=== PATIENT | female | born 1965 | race Caucasian/White ===

== ENCOUNTER 2018-04-13 16:43 | Emergency (ER) | payer MEDICARE, MEDICAID ==
[~2018-04-13] VITALS: Ht 162.6 cm; Wt 69.1 kg
[~2018-04-13 16:43] MED LIST: GLIM1TAB46 PO; LANTUS SQ; LISI-230 PO; METF1000 PO; ZOC40T PO
[2018-04-13 16:51] VITALS: BP 129/79
[2018-04-13] MEDS ORDERED: CEPH-571 PO (17:04)
== END 2018-04-13 17:14 | disposition home or self-care (01) ==
LOC: ER 16:43
DX: L03.032 Cellulitis of left toe (principal); E78.00 Pure hypercholesterolemia, unspecified; I10 Essential (primary) hypertension; E11.9 Type 2 diabetes mellitus without complications; G89.29 Other chronic pain; Z79.4 Long term (current) use of insulin; Z79.899 Other long term (current) drug therapy
CPT/HCPCS: 99283

== ENCOUNTER 2018-05-21 06:15 | Emergency (ER) | payer MEDICARE, MEDICAID ==
[~2018-05-21] VITALS: Ht 165.1 cm; Wt 64.5 kg
[~2018-05-21 06:15] MED LIST changes: +CEPH-571 PO
[2018-05-21] MEDS ORDERED: ketorolac tromethamine 15mg/ml inj. IM ONE (06:45)
[2018-05-21 06:57] VITALS: BP 147/84
[2018-05-21] MEDS ORDERED: CYCL-1 PO (07:04)
== END 2018-05-21 07:03 | disposition home or self-care (01) ==
LOC: ER 06:16
DX: M43.6 Torticollis (principal); E78.00 Pure hypercholesterolemia, unspecified; I10 Essential (primary) hypertension; E11.9 Type 2 diabetes mellitus without complications; G89.29 Other chronic pain; F17.200 Nicotine dependence, unspecified, uncomplicated; Z79.4 Long term (current) use of insulin; Z79.899 Other long term (current) drug therapy
CPT/HCPCS: 96372; 99283; J1885

== ENCOUNTER 2018-08-02 09:33 | Emergency (ER) | payer MEDICARE, MEDICAID ==
[~2018-08-02] VITALS: Ht 162.6 cm; Wt 68.2 kg
[~2018-08-02 09:33] MED LIST changes: +CYCL-1 PO
[2018-08-02 10:13] VITALS: BP 131/81
[2018-08-02] MEDS ORDERED: ketorolac trometh. 30mg/ml inj. IM ONE (11:15)
[2018-08-02] MEDS ORDERED: HYDR-3965 PO (11:20)
== END 2018-08-02 11:47 | disposition home or self-care (01) ==
LOC: ER 09:34
DX: R07.89 Other chest pain (principal); F17.200 Nicotine dependence, unspecified, uncomplicated; E78.00 Pure hypercholesterolemia, unspecified; I10 Essential (primary) hypertension; E11.9 Type 2 diabetes mellitus without complications; G89.29 Other chronic pain; Z79.899 Other long term (current) drug therapy; Z79.4 Long term (current) use of insulin; W11.XXXA Fall on and from ladder, initial encounter; Y93.89 Activity, other specified; Y92.89 Other specified places as the place of occurrence of the external cause; Y99.9 Unspecified external cause status
CPT/HCPCS: 71046; 96372; 99284; J1885

== ENCOUNTER 2019-06-07 15:41 | Emergency (ER) | payer MEDICARE, MEDICAID ==
[~2019-06-07] VITALS: Ht 162.6 cm; Wt 67.9 kg
[~2019-06-07 15:41] MED LIST changes: +GLIM1TAB3 PO; -GLIM1TAB46 PO
[2019-06-07 15:46] VITALS: BP 116/67
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
[2019-06-07] MEDS ORDERED: HYDR-4353 PO (16:41)
[2019-06-07] MEDS ORDERED: HYDROcodone/acetaminophen 10/325mg tab PO ONE (16:55)
== END 2019-06-07 17:07 | disposition home or self-care (01) ==
LOC: ER 15:42
DX: R07.81 Pleurodynia (principal); M25.551 Pain in right hip; E78.00 Pure hypercholesterolemia, unspecified; I10 Essential (primary) hypertension; E11.9 Type 2 diabetes mellitus without complications; G89.29 Other chronic pain; F41.9 Anxiety disorder, unspecified; F32.9 Major depressive disorder, single episode, unspecified; F17.200 Nicotine dependence, unspecified, uncomplicated; Z79.4 Long term (current) use of insulin; Z79.84 Long term (current) use of oral hypoglycemic drugs; Z79.899 Other long term (current) drug therapy; Y04.8XXA Assault by other bodily force, initial encounter; Y93.89 Activity, other specified; Y92.89 Other specified places as the place of occurrence of the external cause; Y99.8 Other external cause status
CPT/HCPCS: 71100; 73502; 99283

== ENCOUNTER → 2020-01-17 | Emergency (ER) | payer MEDICARE, MEDICAID ==
[~2020-01-17] VITALS: Ht 165.1 cm; Wt 72.7 kg
[~2020-01-17] MED LIST changes: +AMA1T PO; -GLIM1TAB3 PO; +HYDR-3965 PO; +ketorolac trometh inj. 60 MG/2 ML VIAL IM ONE; +ondansetron 4mg rapidly disintigrating tab PO ONE
[2020-01-17 07:52] VITALS: BP 153/93
[2020-01-17 08:39] LABS: CLARITY,URINE SLIGHTLY CLOUDY (Clear); COLOR,URINE YELLOW (Yellow); GLUCOSE, URINE >=1000 mg/dl (Neg); KETONES,URINE NEGATIVE (Neg); LEUKOCYTE ESTERASE ,URINE NEGATIVE (Neg); NITRITES, URINE NEGATIVE (Neg); OCCULT BLOOD,URINE NEGATIVE (Neg); PROTEIN,URINE NEGATIVE (Neg); UROBILINOGEN,URINE 0.2 E.U/dL (0.2-1.0)
[2020-01-17 08:40] LABS: UA COLLECTION TYPE CLN CATCH MIDSTREAM
[2020-01-17 08:41] LABS: ALANINE AMINOTRANSFERASE 22 U/L (12-78); ALBUMIN 3.8 G/DL (3.4-5.0); ALKALINE PHOSPHATASE 123 IU/L (46-116); ANION GAP 3 (8-16); ASPARTATE AMINO TRANSFERASE 7 U/L (10-37); BILIRUBIN,TOTAL 0.3 MG/DL (0.1-1.0); BLOOD UREA NITROGEN 23 MG/DL (7-18); BUN/CREATININE RATIO 26.1 (6.6-38.0); CALCIUM 9.6 MG/DL (8.5-10.1); CHLORIDE 99 MMOL/L (99-107); CREATININE 0.88 MG/DL (0.40-0.90); GLUCOSE 310 MG/DL (70-104); POTASSIUM 4.3 MMOL/L (3.5-5.1); SODIUM 133 MMOL/L (135-145); TOTAL CARBON DIOXIDE 31.1 MMOL/L (24-32); TOTAL PROTEIN 7.8 G/DL (6.4-8.2); eGFR 67 ML/MIN
[2020-01-17 08:42] LABS: BASOPHILS # (AUTO) 0.1 X10'3 (0-0.2); BASOPHILS % (AUTO) 0.7 % (0-1); EOSINOPHILS # (AUTO) 0.3 X10'3 (0-0.9); EOSINOPHILS % (AUTO) 3.2 % (0-6); HEMATOCRIT 44.3 % (35.0-45.0); LYMPHOCYTES # (AUTO) 2.8 X10'3 (1.1-4.8); LYMPHOCYTES % (AUTO) 31.6 % (21-51); MEAN CORPUSCULAR HEMOGLOBIN 31.8 PG (27.0-31.0); MEAN CORPUSCULAR HGB CONC 33.9 g/dL (33.0-36.5); MEAN CORPUSCULAR VOLUME 93.7 FL (78-98); MEAN PLATELET VOLUME 7.1 FL (7.4-10.4); MONOCYTES # (AUTO) 0.6 X10'3 (0-0.9); MONOCYTES % (AUTO) 6.5 % (2-12); NEUTROPHILS # (AUTO) 5.2 X10'3 (1.8-7.7); PLATELET COUNT 401 X10'3 (140-440); RED BLOOD COUNT 4.73 X10'6 (4.20-5.60); RED CELL DISTRIBUTION WIDTH 13.1 % (11.5-14.5); WHITE BLOOD COUNT 8.9 X10'3 (4.5-11.0)
[2020-01-17 08:43] LABS: AMYLASE 75 U/L (25-115); LIPASE 1655 U/L (73-393)
[2020-01-17 08:43] LABS: RBC,URINE NONE SEEN /HPF (0-2); WBC,URINE 0-4 /HPF (0-4)
[2020-01-17 08:44] LABS: BACTERIA,URINE FEW /HPF (Neg); MUCUS STRANDS NONE SEEN /LPF (Neg); RENAL CELLS, URINE FEW /HPF; SQUAMOUS EPITHELIAL CELL,UR MODERATE /LPF (FEW)
== END | disposition home or self-care (01) ==
LOC: ER 07:51
DX: K85.90 Acute pancreatitis without necrosis or infection, unspecified (principal); E78.00 Pure hypercholesterolemia, unspecified; I10 Essential (primary) hypertension; E11.9 Type 2 diabetes mellitus without complications; G89.29 Other chronic pain; F41.0 Panic disorder [episodic paroxysmal anxiety]; F32.9 Major depressive disorder, single episode, unspecified; Z79.2 Long term (current) use of antibiotics; Z79.4 Long term (current) use of insulin; Z79.899 Other long term (current) drug therapy
CPT/HCPCS: 36415; 76700; 80053; 81001; 82150; 83690; 85025; 96372; 99284; J1885

== ENCOUNTER 2021-12-16 05:54 | Emergency (ER) | payer MEDICARE, MEDICAID ==
[~2021-12-16] VITALS: Ht 160 cm; Wt 72.7 kg
[~2021-12-16 05:54] MED LIST changes: -HYDR-3965 PO; -ketorolac trometh inj. 60 MG/2 ML VIAL IM ONE; -ondansetron 4mg rapidly disintigrating tab PO ONE
[2021-12-16 06:01] VITALS: BP 122/86
[2021-12-16] MEDS ORDERED: acetaminophen 325mg tablet PO ONE (06:40)
[2021-12-16] MEDS ORDERED: ketorolac trometh inj. 60 MG/2 ML VIAL IM ONE (06:40)
== END 2021-12-16 07:29 | disposition home or self-care (01) ==
LOC: ER 05:55
DX: G56.02 Carpal tunnel syndrome, left upper limb (principal); E78.00 Pure hypercholesterolemia, unspecified; I10 Essential (primary) hypertension; E11.9 Type 2 diabetes mellitus without complications; G89.29 Other chronic pain; Z79.4 Long term (current) use of insulin; Z79.899 Other long term (current) drug therapy
CPT/HCPCS: 96372; 99283; J1885

== ENCOUNTER 2022-02-16 07:55 | Day surgery (SDC) | payer MEDICARE, MEDICAID ==
[2022-02-09 11:42] LABS: BASOPHILS # (AUTO) 0.1 X10'3 (0-0.2); BASOPHILS % (AUTO) 0.9 % (0-1); EOSINOPHILS # (AUTO) 0.2 X10'3 (0-0.9); EOSINOPHILS % (AUTO) 2.2 % (0-6); LYMPHOCYTES # (AUTO) 2.6 X10'3 (1.1-4.8); MEAN CORPUSCULAR HEMOGLOBIN 31.3 PG (27.0-31.0); MEAN CORPUSCULAR HGB CONC 34.4 g/dL (33.0-36.5); MEAN PLATELET VOLUME 7.3 FL (7.4-10.4); MONOCYTES # (AUTO) 0.5 X10'3 (0-0.9); MONOCYTES % (AUTO) 7.1 % (2-12); NEUTROPHILS # (AUTO) 3.6 X10'3 (1.8-7.7); NEUTROPHILS % (AUTO) 51.8 % (42-75); PRE OP HEMOGLOBIN 14.5 g/dL (12.0-16.0); PRE OP PLATELET COUNT 301 X10'3 (140-440); RED BLOOD COUNT 4.62 X10'6 (4.20-5.60); RED CELL DISTRIBUTION WIDTH 13.2 % (11.5-14.5)
[2022-02-09 12:02] LABS: ALBUMIN 3.7 G/DL (3.4-5.0); ALKALINE PHOSPHATASE 111 IU/L (46-116); BLOOD UREA NITROGEN 18 MG/DL (7-18); BUN/CREATININE RATIO 24.3 (6.6-38.0); CALCIUM 9.2 MG/DL (8.5-10.1); CHLORIDE 97 MMOL/L (99-107); CREATININE 0.74 MG/DL (0.40-0.90); PRE OP ALT 32 U/L (30-65); PRE OP ANION GAP 7 (8-16); PRE OP AST 12 U/L (10-37); PRE OP BILIRUB, TOTAL 0.4 MG/DL (0.0-1.0); PRE OP POTASSIUM 4.4 MMOL/L (3.4-5.1); PRE OP SODIUM 131 MMOL/L (135-145); TOTAL CARBON DIOXIDE 26.8 MMOL/L (24-32); TOTAL PROTEIN 7.4 G/DL (6.4-8.2); eGFR 81 ML/MIN
[2022-02-09 12:55] LABS: PRE OP GLUCOSE 376 MG/DL (70-104)
[2022-02-16] VITALS (7 sets, daily range): BP systolic 112–140; BP diastolic 68–91
[~2022-02-16] VITALS: Ht 165.1 cm; Wt 65.5 kg
[~2022-02-16 07:55] MED LIST changes: +ACET-890 PO; +ALBU18HF2 INH; -AMA1T PO; +ASCO-134 PO; +ATOR-2 PO; +BUPIVAcaine/PF 7.5mg/ml (0.75%) 10ml vial ONE; -CEPH-571 PO; +CHOL500026 PO; -CYCL-1 PO; +IBUP-1984 PO; +INSU100I8 SQ; +LIDOcaine 0.5% (5mg/ml) 50ml vial ONE; +MILK175C5 PO; +PSEU120T55 PO; +SERT-434 PO; -ZOC40T PO; +albuterol 2.5 MG/3 ML nebule NEB ONE; +famotidine 20mg tablet PO ONE; +ringers solution, lacted 1,000 ML IV SCH
[2022-02-16] MEDS ORDERED: ondansetron/PF 4mg/2ml inj IV PRN (08:25)
[2022-02-16] MEDS ORDERED: ringers solution, lacted 1,000 ML IV SCH (08:25)
[2022-02-16] MEDS ORDERED: labetalol 20mg/4ml (5mg/ml) syringe IV PRN (08:25)
[2022-02-16] MEDS ORDERED: morphine 2 MG/ML inj. syringe IV PRN (08:25)
[2022-02-16] MEDS ORDERED: morphine 4 MG/ML inj SYRINge IV PRN (08:25)
[2022-02-16] MEDS ORDERED: hydrALAZINE 20mg/ml inj. IV PRN (08:25)
[2022-02-16] MEDS ORDERED: fentaNYL/PF 50MCG/1 ML 2ML syringe IV PRN ×2 (08:25)
[2022-02-16] MEDS ORDERED: fentaNYL/PF 50MCG/1 ML 2ML syringe ONE (09:28)
[2022-02-16] MEDS ORDERED: MIDAZolam 1 MG/ML 5ML VIAL ONE (09:28)
--- NOTE | 2022-02-16 10:00 | NUR ---
Received from OR via [facility], accompanied by Anesthesiologist DR. GOLDEN and report given by Anesthesiolgist. LEFT WRIST DRESSING CDI, JOHNSON, CSM INTACT, TINGLING, DENIES PAIN. R.FA 20G PIV WITH LR AT 100ML/HR. VSS. DENIES NAUSEA, JUST FEEL SLEEPY. EDUCATION PROVIDED.
--- NOTE | 2022-02-16 10:47 | NUR ---
PATIENT GIVEN INSTRUCTIONS FOR DISCHARGE AND ANSWERED ALL QUESTIONS. RFA PIV REMOVED, VSS. DRESSING TO LEFT WRIST CDI. DENIES PAIN. DISCHARGED TO SISTER, SHAHAB, INSTRUCTIONS REVIEWED WITH HER WELL. PATIENT DISCHARGED WITH ALL BELONGINGS.
== END 2022-02-16 10:47 | disposition home or self-care (01) ==
LOC: PAS 07:55
PROVIDERS: ATTEND Orthopaedic Surgery Hand Surgery
DX: G56.02 Carpal tunnel syndrome, left upper limb (principal); E11.9 Type 2 diabetes mellitus without complications; I10 Essential (primary) hypertension; F41.9 Anxiety disorder, unspecified; F32.A Depression, unspecified; M19.90 Unspecified osteoarthritis, unspecified site; F17.210 Nicotine dependence, cigarettes, uncomplicated; Z20.822 Contact with and (suspected) exposure to COVID-19; Z79.899 Other long term (current) drug therapy; Z79.4 Long term (current) use of insulin; Z98.51 Tubal ligation status; Z72.89 Other problems related to lifestyle
CPT/HCPCS: 29848; 36415; 80053; 82948; 85025; 93005; J0690; J2250; J3010; J3490; J7030; J7060; J7120; U0003; U0005; Z7506; Z7512; A4215; A6449; A7000

== ENCOUNTER 2022-08-03 07:35 | Day surgery (SDC) | payer MEDICARE, MEDICAID ==
[2022-07-27 16:12] LABS: BASOPHILS % (AUTO) 0.6 % (0-1); EOSINOPHILS # (AUTO) 0.1 X10'3 (0-0.9); EOSINOPHILS % (AUTO) 2.4 % (0-6); LYMPHOCYTES # (AUTO) 2.9 X10'3 (1.1-4.8); LYMPHOCYTES % (AUTO) 48.8 % (21-51); MEAN CORPUSCULAR HEMOGLOBIN 31.7 PG (27.0-31.0); MEAN CORPUSCULAR HGB CONC 34.5 g/dL (33.0-36.5); MEAN CORPUSCULAR VOLUME 91.8 FL (78-98); MEAN PLATELET VOLUME 6.9 FL (7.4-10.4); MONOCYTES # (AUTO) 0.4 X10'3 (0-0.9); MONOCYTES % (AUTO) 6.7 % (2-12); NEUTROPHILS # (AUTO) 2.4 X10'3 (1.8-7.7); NEUTROPHILS % (AUTO) 41.5 % (42-75); PRE OP HEMATOCRIT 40.2 % (35.0-45.0); PRE OP HEMOGLOBIN 13.9 g/dL (12.0-16.0); PRE OP PLATELET COUNT 284 X10'3 (140-440); RED BLOOD COUNT 4.38 X10'6 (4.20-5.60); RED CELL DISTRIBUTION WIDTH 12.6 % (11.5-14.5)
[2022-07-27 16:22] LABS: ALBUMIN 3.6 G/DL (3.4-5.0); ALBUMIN/GLOBULIN RATIO 1.1 (1.1-1.5); ALKALINE PHOSPHATASE 95 IU/L (46-116); BLOOD UREA NITROGEN 15 MG/DL (7-18); BUN/CREATININE RATIO 19.7 (6.6-38.0); CALCIUM 9.1 MG/DL (8.5-10.1); CHLORIDE 102 MMOL/L (99-107); CREATININE 0.76 MG/DL (0.40-0.90); PRE OP ALT 25 U/L (30-65); PRE OP ANION GAP 7 (8-16); PRE OP AST 12 U/L (10-37); PRE OP BILIRUB, TOTAL 0.2 MG/DL (0.0-1.0); PRE OP POTASSIUM 4.1 MMOL/L (3.4-5.1); PRE OP SODIUM 138 MMOL/L (135-145); TOTAL CARBON DIOXIDE 29.4 MMOL/L (24-32); TOTAL PROTEIN 6.8 G/DL (6.4-8.2); eGFR 79 ML/MIN
[2022-07-27 16:24] LABS: PRE OP GLUCOSE 294 MG/DL (70-104)
[~2022-08-03] VITALS: Ht 162.6 cm; Wt 65.8 kg
[2022-08-03] VITALS (7 sets, daily range): BP systolic 102–134; BP diastolic 69–82
[~2022-08-03 07:35] MED LIST changes: -ASCO-134 PO; +BUPIVAcaine/PF 2.5mg/ml (0.25%) 10ml vial ONE; -BUPIVAcaine/PF 7.5mg/ml (0.75%) 10ml vial ONE; -METF1000 PO; -PSEU120T55 PO; -albuterol 2.5 MG/3 ML nebule NEB ONE; +albuterol 2.5 MG/3 ML nebule NEB PRN; +ceFAZolin inj. 2,000 MG in dextrose 5%-water 100 ML IV ONE
[2022-08-03] MEDS ORDERED: meperidine/PF 25mg/ml syringe IV PRN ×3 (08:40)
[2022-08-03] MEDS ORDERED: morphine 4 MG/ML inj SYRINge IV PRN (08:40)
[2022-08-03] MEDS ORDERED: ondansetron/PF 4mg/2ml inj IV PRN (08:40)
[2022-08-03] MEDS ORDERED: ringers solution, lacted 1,000 ML IV SCH (08:40)
[2022-08-03] MEDS ORDERED: morphine 2 MG/ML inj. syringe IV PRN (08:40)
[2022-08-03] MEDS ORDERED: proCHLORperazine 10 MG/2 ml inj IV PRN (08:40)
[2022-08-03] MEDS ORDERED: midazolam 1 mg/ML 2ml injection ONE (08:58)
[2022-08-03] MEDS ORDERED: fentaNYL/PF 50MCG/1 ML 2ML syringe ONE (08:58)
--- NOTE | 2022-08-03 09:19 | NUR ---
Received from OR via , accompanied by Anesthesiologist DO and OR NURSE report given by Anesthesiolgist. PT IS DROWSY YET ABLE TO FOLLOW VERBAL COMMANDS. RT WRIST BANDAGE, CDI. VSS. PT ZANE ANY PAIN OR DISCOMFORT. Addendum: 08/03/22 at 0955 by Nedra Sims RN Amended: Links added.
== END 2022-08-03 10:29 | disposition home or self-care (01) ==
LOC: PAS 07:35
PROVIDERS: ATTEND Orthopaedic Surgery Hand Surgery
DX: G56.02 Carpal tunnel syndrome, left upper limb (principal); F41.8 Other specified anxiety disorders; M19.90 Unspecified osteoarthritis, unspecified site; I10 Essential (primary) hypertension; F17.210 Nicotine dependence, cigarettes, uncomplicated; Z79.899 Other long term (current) drug therapy; Z98.51 Tubal ligation status; Z98.890 Other specified postprocedural states; Z72.89 Other problems related to lifestyle
CPT/HCPCS: 36415; 64721; 80053; 82948; 85025; J0690; J2250; J3010; J3490; J7030; J7060; J7120; Z7506; Z7512; A4215

== ENCOUNTER 2024-01-21 18:23 | Emergency (ER) | payer MEDICARE, MEDICAID ==
[~2024-01-21] VITALS: Ht 160 cm; Wt 70.5 kg
[~2024-01-21 18:23] MED LIST changes: -BUPIVAcaine/PF 2.5mg/ml (0.25%) 10ml vial ONE; -LIDOcaine 0.5% (5mg/ml) 50ml vial ONE; -albuterol 2.5 MG/3 ML nebule NEB PRN; -ceFAZolin inj. 2,000 MG in dextrose 5%-water 100 ML IV ONE; -famotidine 20mg tablet PO ONE; -ringers solution, lacted 1,000 ML IV SCH
[2024-01-21 18:29] VITALS: BP 170/96; PULSE 94; RESP 18; TEMP 97.9; O2SAT 98
[2024-01-21 18:58] LABS: ALBUMIN 3.5 G/DL (3.4-5.0); ANION GAP 11 (8-16); BLOOD UREA NITROGEN 10 MG/DL (7-18); BUN/CREATININE RATIO 16.4 (10.0-20.0); CALCIUM 8.8 MG/DL (8.5-10.1); CHLORIDE 104 MMOL/L (99-107); CREATININE 0.61 MG/DL (0.40-0.90); GLUCOSE 133 MG/DL (70-104); LIPASE 22 U/L (16-77); POTASSIUM 3.3 MMOL/L (3.5-5.1); SODIUM 142 MMOL/L (135-145); TOTAL CARBON DIOXIDE 27.3 MMOL/L (24-32); eCRCL 84 ML/MIN; eGFR > 90 ML/MIN
[2024-01-21 18:59] LABS: HEMOGLOBIN 13.2 g/dl (12.0-16.0)
[2024-01-21 19:01] LABS: BASOPHILS % (AUTO) 0.4 % (0-1); EOSINOPHILS # (AUTO) 0.1 X10'3 (0-0.9); EOSINOPHILS % (AUTO) 0.6 % (0-6); HEMATOCRIT 39.1 % (35.0-45.0); LYMPHOCYTES # (AUTO) 2.2 X10'3 (1.1-4.8); LYMPHOCYTES % (AUTO) 27.9 % (21-51); MEAN CORPUSCULAR HEMOGLOBIN 31.8 PG (27.0-31.0); MEAN CORPUSCULAR HGB CONC 33.6 g/dL (33.0-36.5); MEAN CORPUSCULAR VOLUME 94.5 FL (78-98); MEAN PLATELET VOLUME 6.9 FL (7.4-10.4); MONOCYTES # (AUTO) 0.5 X10'3 (0-0.9); MONOCYTES % (AUTO) 6.7 % (2-12); NEUTROPHILS # (AUTO) 5.2 X10'3 (1.8-7.7); NEUTROPHILS % (AUTO) 64.4 % (42-75); PLATELET COUNT 251 X10'3 (140-440); RED BLOOD COUNT 4.14 X10'6 (4.20-5.60); RED CELL DISTRIBUTION WIDTH 12.6 % (11.5-14.5)
[2024-01-21 20:04] LABS: BILIRUBIN,URINE NEGATIVE (Neg); CLARITY,URINE CLEAR (Clear); COLOR,URINE STRAW (Yellow); GLUCOSE, URINE NEGATIVE (Neg); KETONES,URINE NEGATIVE (Neg); LEUKOCYTE ESTERASE ,URINE TRACE (Neg); OCCULT BLOOD,URINE TRACE-INTACT (Neg); PROTEIN,URINE NEGATIVE (Neg); UROBILINOGEN,URINE 0.2 E.U/dL (0.2-1.0)
[2024-01-21 20:05] LABS: NITRITES, URINE NEGATIVE (Neg); UA COLLECTION TYPE CLN CATCH MIDSTREAM
[2024-01-21 20:15] LABS: BACTERIA,URINE 4+ /HPF (Neg); MUCUS STRANDS NONE SEEN /LPF (Neg); RBC,URINE 0-2 /HPF (0-2); SQUAMOUS EPITHELIAL CELL,UR FEW /LPF (FEW); TRANSITIONAL EPI CELLS,URINE MODERATE /HPF; WBC,URINE 0-4 /HPF (0-4)
[2024-01-21] MEDS ORDERED: CEPH250T PO (20:55)
== END 2024-01-21 21:07 | disposition home or self-care (01) ==
LOC: ER 18:24
DX: E11.65 Type 2 diabetes mellitus with hyperglycemia (principal); N39.0 Urinary tract infection, site not specified; I10 Essential (primary) hypertension; E78.00 Pure hypercholesterolemia, unspecified; G89.29 Other chronic pain; M54.9 Dorsalgia, unspecified; F41.9 Anxiety disorder, unspecified; F32.9 Major depressive disorder, single episode, unspecified; F41.0 Panic disorder [episodic paroxysmal anxiety]
CPT/HCPCS: 36415; 71045; 80048; 81001; 82948; 83690; 85025; 87077; 87088; 87186; 99284

== ENCOUNTER 2024-03-28 10:44 | Emergency (ER) | payer MEDICARE, MEDICAID ==
[~2024-03-28] VITALS: Ht 162.6 cm; Wt 66.8 kg
[2024-03-28 11:02] LABS: BILIRUBIN,URINE NEGATIVE (Neg); CLARITY,URINE CLEAR (Clear); COLOR,URINE STRAW (Yellow); GLUCOSE, URINE NEGATIVE (Neg); KETONES,URINE NEGATIVE (Neg); LEUKOCYTE ESTERASE ,URINE NEGATIVE (Neg); NITRITES, URINE NEGATIVE (Neg); OCCULT BLOOD,URINE NEGATIVE (Neg); PH,URINE 6.5 (4.8-8.0); PROTEIN,URINE NEGATIVE (Neg); UROBILINOGEN,URINE 0.2 E.U/dL (0.2-1.0)
[2024-03-28 11:05] LABS: URINE HCG NEGATIVE (NEG)
[2024-03-28 11:06] LABS: UA COLLECTION TYPE CLN CATCH MIDSTREAM
[2024-03-28 11:09] LABS: BASOPHILS # (AUTO) 0.1 X10'3 (0-0.2); BASOPHILS % (AUTO) 0.8 % (0-1); EOSINOPHILS # (AUTO) 0.8 X10'3 (0-0.9); EOSINOPHILS % (AUTO) 10.2 % (0-6); HEMATOCRIT 41.8 % (35.0-45.0); HEMOGLOBIN 13.9 g/dl (12.0-16.0); LYMPHOCYTES # (AUTO) 3.6 X10'3 (1.1-4.8); LYMPHOCYTES % (AUTO) 46.2 % (21-51); MEAN CORPUSCULAR HEMOGLOBIN 31.4 PG (27.0-31.0); MEAN CORPUSCULAR HGB CONC 33.3 g/dL (33.0-36.5); MEAN CORPUSCULAR VOLUME 94.3 FL (78-98); MEAN PLATELET VOLUME 6.8 FL (7.4-10.4); MONOCYTES # (AUTO) 0.5 X10'3 (0-0.9); MONOCYTES % (AUTO) 6.8 % (2-12); NEUTROPHILS # (AUTO) 2.8 X10'3 (1.8-7.7); PLATELET COUNT 280 X10'3 (140-440); RED BLOOD COUNT 4.43 X10'6 (4.20-5.60); RED CELL DISTRIBUTION WIDTH 12.8 % (11.5-14.5); WHITE BLOOD COUNT 7.7 X10'3 (4.5-11.0)
[2024-03-28 11:31] LABS: ALANINE AMINOTRANSFERASE 36 U/L (12-78); ALBUMIN 3.6 G/DL (3.4-5.0); ALKALINE PHOSPHATASE 69 IU/L (46-116); ANION GAP 8 (8-16); ASPARTATE AMINO TRANSFERASE 16 U/L (10-37); BILIRUBIN,TOTAL 0.2 MG/DL (0.1-1.0); BLOOD UREA NITROGEN 12 MG/DL (7-18); BUN/CREATININE RATIO 18.8 (10.0-20.0); CHLORIDE 103 MMOL/L (99-107); CREATININE 0.64 MG/DL (0.40-0.90); GLUCOSE 75 MG/DL (70-104); LIPASE 32 U/L (16-77); POTASSIUM 4.1 MMOL/L (3.5-5.1); SODIUM 139 MMOL/L (135-145); TOTAL CARBON DIOXIDE 27.8 MMOL/L (24-32); TOTAL PROTEIN 7.2 G/DL (6.4-8.2); eCRCL 84 ML/MIN; eGFR > 90 ML/MIN
[2024-03-28 11:34] VITALS: BP 142/73; PULSE 90; RESP 16; TEMP 98.1; O2SAT 95
== END 2024-03-28 11:59 | disposition home or self-care (01) ==
LOC: ER 10:44
DX: E11.649 Type 2 diabetes mellitus with hypoglycemia without coma (principal); E78.00 Pure hypercholesterolemia, unspecified; I10 Essential (primary) hypertension; G89.29 Other chronic pain; M54.9 Dorsalgia, unspecified; F41.9 Anxiety disorder, unspecified; F32.A Depression, unspecified; F41.0 Panic disorder [episodic paroxysmal anxiety]; Z79.899 Other long term (current) drug therapy; Z79.4 Long term (current) use of insulin
CPT/HCPCS: 36415; 80053; 81003; 81025; 82948; 83690; 85025; 99283

== ENCOUNTER 2024-06-04 03:14 | Emergency (ER) | payer MEDICARE, MEDICAID | END 2024-06-04 04:00 | disposition left against medical advice (07) | LOC: ER 03:14 | DX: Z53.21 Procedure and treatment not carried out due to patient leaving prior to being seen by health care provider (principal) ==

== ENCOUNTER 2024-06-20 14:51 | Emergency (ER) | payer MEDICARE, MEDICAID ==
[~2024-06-20] VITALS: Ht 162.6 cm; Wt 66.8 kg
[2024-06-20 15:27] LABS: BILIRUBIN,URINE SMALL (Neg); CLARITY,URINE SLIGHTLY CLOUDY (Clear); COLOR,URINE YELLOW (Yellow); GLUCOSE, URINE NEGATIVE (Neg); KETONES,URINE TRACE mg/dl (Neg); LEUKOCYTE ESTERASE ,URINE NEGATIVE (Neg); NITRITES, URINE NEGATIVE (Neg); OCCULT BLOOD,URINE NEGATIVE (Neg); PROTEIN,URINE 100 mg/dl (Neg)
[2024-06-20 15:33] LABS: UA COLLECTION TYPE CLN CATCH MIDSTREAM
[2024-06-20 15:34] LABS: BACTERIA,URINE FEW /HPF (Neg); MUCUS STRANDS MANY /LPF (Neg); RBC,URINE NONE SEEN /HPF (0-2); SQUAMOUS EPITHELIAL CELL,UR MODERATE /LPF (FEW); WBC,URINE 0-4 /HPF (0-4)
[2024-06-20] MEDS: normal saline 1000ml 1,000 ML IV ONE (22:46)
[2024-06-20 22:54] LABS: BASOPHILS # (AUTO) 0.1 X10'3 (0-0.2); EOSINOPHILS # (AUTO) 0.6 X10'3 (0-0.9); EOSINOPHILS % (AUTO) 9.1 % (0-6); HEMATOCRIT 40.3 % (35.0-45.0); LYMPHOCYTES # (AUTO) 2.6 X10'3 (1.1-4.8); LYMPHOCYTES % (AUTO) 38.9 % (21-51); MEAN CORPUSCULAR HEMOGLOBIN 32.1 PG (27.0-31.0); MEAN CORPUSCULAR HGB CONC 34.6 g/dL (33.0-36.5); MEAN CORPUSCULAR VOLUME 92.8 FL (78-98); MEAN PLATELET VOLUME 6.8 FL (7.4-10.4); MONOCYTES # (AUTO) 0.6 X10'3 (0-0.9); MONOCYTES % (AUTO) 9.5 % (2-12); NEUTROPHILS # (AUTO) 2.8 X10'3 (1.8-7.7); NEUTROPHILS % (AUTO) 41.5 % (42-75); PLATELET COUNT 280 X10'3 (140-440); RED BLOOD COUNT 4.34 X10'6 (4.20-5.60); WHITE BLOOD COUNT 6.8 X10'3 (4.5-11.0)
[2024-06-20 23:05] LABS: ALANINE AMINOTRANSFERASE 38 U/L (12-78); ALBUMIN 3.6 G/DL (3.4-5.0); ALBUMIN/GLOBULIN RATIO 1.1 (1.1-1.5); ALKALINE PHOSPHATASE 82 IU/L (46-116); ANION GAP 8 (8-16); ASPARTATE AMINO TRANSFERASE 13 U/L (10-37); BILIRUBIN,TOTAL 0.4 MG/DL (0.1-1.0); BLOOD UREA NITROGEN 24 MG/DL (7-18); BUN/CREATININE RATIO 25.3 (10.0-20.0); CALCIUM 9.4 MG/DL (8.5-10.1); CHLORIDE 96 MMOL/L (99-107); CREATININE 0.95 MG/DL (0.40-0.90); GLUCOSE 244 MG/DL (70-104); POTASSIUM 4.7 MMOL/L (3.5-5.1); SODIUM 132 MMOL/L (135-145); TOTAL CARBON DIOXIDE 28.3 MMOL/L (24-32); eCRCL 56 ML/MIN; eGFR 60 ML/MIN
[2024-06-21 00:07] VITALS: BP 123/71; PULSE 74; RESP 14; TEMP 98.6; O2SAT 98
== END 2024-06-21 00:10 | disposition home or self-care (01) ==
LOC: ER 14:51
DX: B34.9 Viral infection, unspecified (principal); Z20.822 Contact with and (suspected) exposure to COVID-19; N39.0 Urinary tract infection, site not specified; Z11.52 Encounter for screening for COVID-19
CPT/HCPCS: 36415; 71045; 80053; 81001; 83605; 85025; 87040; 87811; 96360; 99284; J7030

== ENCOUNTER 2025-02-27 14:36 | Emergency (ER) | payer MEDICARE, MEDICAID ==
[~2025-02-27] VITALS: Ht 160 cm; Wt 68.0 kg
[2025-02-27 14:40] VITALS: BP 119/69; PULSE 91; TEMP 97.6; O2SAT 96
--- NOTE | 2025-02-27 15:27 | Physician Documentation ---
History of Present Illness ~ Chief Complaint: Arm Pain Stated Complaint: R ARM PAIN Time Seen by MD: 15:13 OK to notify your PCP?: Yes Primary Medical Doctor: marcela Source: patient Mode of Arrival: POV Exam Limitations: no limitations HPI 59-year-old female presents with right upper arm pain and neck pain and midthoracic pain after lifting a heavy box last night around 9:30 p.m.. She states that she has a prior neck injury and back injury with possible disc compression or bulging discs she does not remember the name of the condition and thinks she may have strained the muscles around her neck last night. She used to be seen by MOSHE Child for her neck problems and opted out of surgery. She has good range of motion in the right arm although it is painful to perform. She took Tylenol last night for the pain. Tetanus within 5 years: No Medication Reconciliation Allergies: Coded Allergies: No Known Allergies (Unverified , 02/27/25) Scheduled Atorvastatin Calcium (Atorvastatin Calcium), 1 TAB PO HS, (Reported) Cholecalciferol (Vitamin D3) (Dialyvite Vitamin D3 Max), 1 TAB PO Q7D, (Reported) Insulin Glargine,Hum.rec.anlog* (Lantus*), 50 UNITS SQ HS, (Reported) Insulin Lispro (Humalog), SQ ACHS, (Reported) Lisinopril/Hydrochlorothiazide 10-12.5 Mg* (Lisinopril-Hctz 10-12.5 Mg*), 10- 12.5 MG PO HS, (Reported) Milk Thistle Seed Extract (Milk Thistle), Unknown Dose PO BID, (Reported) Sertraline HCl (Sertraline HCl), 150 MG PO HS, (Reported) Scheduled PRN Acetaminophen (Tylenol), 500 MG PO Q4HPRN PRN for pain or fever, (Reported) Albuterol Sulfate (Ventolin Hfa), 2 PUFFS INH Q4HPRN PRN for SOB or wheezing, (Reported) Ibuprofen* (Motrin*), Unknown Dose PO Q6H PRN PRN for pain, (Reported) Past Medical History Past Medical History: High Cholesterol, Hypertension, Diabetes, Chronic Back Pain, Anxiety, Depression, Panic Disorder Past Surgical History: no surgical history Alcohol Use: None Drug Use: none Lives In: Home Occupation: employed Review of Systems All Other Systems at this time: Reviewed and Negative Physical Exam Vital Signs: RN Vital Signs have been reviewed: Yes, Temperature: 97.6, Source: Temporal, Heart Rate: 91, Respiratory Rate: 18, BP: 119/69, Pulse Oximetry: 96, Weight: 68.000 Oxygen Flow Rate: 0 Pulse Oximetry Reflects: adequate oxygenation Physical Exam General: Alert, no apparent distress. HEENT: PERRL, EOMI, no injection, moist mucous membranes. Neck: Full range of motion. Respiratory: Lungs clear, no respiratory distress. Chest: No accessory muscle use. Cardiovascular: Regular rate and rhythm, no murmurs. Gastrointestinal: Soft, nontender, nondistended. Bowels sounds present. Extremities: Normal range of motion, no deformity. Normal range of motion in right arm, good pulses and CSM. Back: Tenderness to palpation at T8, muscle spasms along cervical and thoracic spine. Neurologic: Oriented x4. Psychiatric: Normal mood and affect. Skin: Normal color, warm and dry. No edema, no ecchymosis. Progress Results/Orders Results/Orders Vital Signs 02/27/25 14:40 Temp 97.6 Pulse 91 Resp 18 B/P (MAP) 119/69 Pulse Ox 96 O2 Flow Rate 0 Medical Decision Making Findings Suellen is a 59-year-old female with right pain with point tenderness at the lateral aspect of right humerus after lifting a heavy box last night around 9:30 p.m. She has good range of motion in this extremity. She also reports at times having neck pain if she moves certain directions and the muscles along the cervical spine bilaterally are very tight but no tenderness along the vertebrae. She does have tenderness at T8 vertebrae with tenderness along the thoracic spine muscles as well. She has history of neck and back injury with limited information gathered about this. She denies any numbness or tingling in her extremities. She attempted to treat at home with Tylenol last night. We administered a Toradol injection while here in the department. Using shared decision-making with the patient she is comfortable with discharge with a prescription for Flexeril. We discussed the limitations of an x-ray of the humerus or shoulder but due to her good range motion it would likely not show any bone abnormalities. She opted not to do a shoulder or humerus x-ray. We discussed that if she continues having symptoms or symptoms get worse she return to be seen here or at her primary care provider. She should follow up with the primary care provider in the next 3 days. We discussed that she may need further imaging such as an MRI if her symptoms continue. She can continue to ice for the next 48 hours and then alternate ice and heat to the right arm. General Diff Dx:Considerations: Include: Contusion, Fracture, Hematoma, Neurovascular injury, Sprain Shoulder Diff Dx:Consideration: Include: AC separation Departure Disposition: 01 HOME / SELF CARE / HOMELESS Impression: Primary Impression: Muscle strain Condition: Stable Discharge Instructions: Muscle Strain, [id number] Additional Instructions: As discussed you likely have a muscle strain and your right bicep. If you continued eye pain or this gets worse please return back here or go to your primary care provider. Follow up with her primary care prior care provider in the next 3 days. You can use the Flexeril prescription to help with muscle spasms. You can continue ice for the next 48 hours and alternate ice and heat to the right arm as you have already been doing. You can use either Tylenol or ibuprofen/naproxen for pain relief as well. Do not drive on Flexeril until you know how your body reacts to it. Referrals: NO PRIMARY CARE PROVIDER (PCP) Prescriptions Cyclobenzaprine* (Cyclobenzaprine*) 10 Mg Tablet 1 TAB PO Q8H for muscle spasms for 10 Days, #30 TAB 0 Refills Prov: SHANTHI TIRADO 02/27/25 Education Educated: Patient Educated regarding: diagnosis, treatment, prognosis, need for follow up Additional Comment Medical Screen Exam This patient recieved a medical screening examination. After reviewing the individual's medical complaints with presenting symptoms and performing an appropriate physical examination, it was determined that no emergency medical condition is present. This individual is also not a women having contractions. Signature Scribe Signature: . Attestation: Scribed for Shanthi Tirado by Shanthi Bonilla NP . 02/27/25 15:30 SHANTHI TIRADO February 27, 2025 15:26
[2025-02-27] MEDS ORDERED: CYCL-1 PO (15:28)
[2025-02-27 15:54] VITALS: RESP 16
[2025-02-27] MEDS: ketorolac trometh 30MG/ML vial 30 MG/ML VIAL IM ONE (15:54)
== END 2025-02-27 15:55 | disposition home or self-care (01) ==
LOC: ER 14:37
DX: S46.911A Strain of unspecified muscle, fascia and tendon at shoulder and upper arm level, right arm, initial encounter (principal); E11.9 Type 2 diabetes mellitus without complications; E78.00 Pure hypercholesterolemia, unspecified; I10 Essential (primary) hypertension; F41.9 Anxiety disorder, unspecified; F32.A Depression, unspecified; X50.0XXA Overexertion from strenuous movement or load, initial encounter; Y93.89 Activity, other specified; Y92.89 Other specified places as the place of occurrence of the external cause; Y99.8 Other external cause status
CPT/HCPCS: 96372; 99283; J1885

== ENCOUNTER 2025-08-21 11:24 | Emergency (ER) | payer MEDICARE, MEDICAID ==
[~2025-08-21] VITALS: Ht 160 cm; Wt 69.7 kg
[~2025-08-21 11:24] MED LIST changes: +CYCL-1 PO
[2025-08-21 11:33] VITALS: TEMP 97.3
[2025-08-21 12:08] LABS: MEAN PLATELET VOLUME 6.8 FL (7.4-10.4); RED CELL DISTRIBUTION WIDTH 12.6 % (11.5-14.5)
[2025-08-21 12:10] LABS: LEUKOCYTE ESTERASE ,URINE NEGATIVE (Neg); NITRITES, URINE NEGATIVE (Neg); OCCULT BLOOD,URINE NEGATIVE (Neg)
[2025-08-21 12:11] LABS: UA COLLECTION TYPE CLN CATCH MIDSTREAM
--- NOTE | 2025-08-21 12:15 | Physician Documentation ---
History of Present Illness ~ Chief Complaint: Back Pain Stated Complaint: BACK PAIN Time Seen by MD: 11:47 OK to notify your PCP?: Yes Primary Medical Doctor: [facility] Source: patient Mode of Arrival: POV Exam Limitations: no limitations HPI 60-year-old female who is here for lower back pain. She states she has a history of kidney stones and urinary tract infections but has not having any pain with urination. She denies any precipitating event that could have caused her back pain. She has been going to the chiropractor but states that her pain did not start after going to the chiropractor. She was hoping that she can get a Toradol injection. She has been taking Tylenol, Motrin and Flexeril at home with minimal improvement. Pain is localized to her lower back no radiation into extremities. No clumsiness, or bowel or bladder incontinence, urinary retention. Medication Reconciliation Allergies: Coded Allergies: No Known Allergies (Unverified , 08/21/25) Scheduled Atorvastatin Calcium (Atorvastatin Calcium), 1 TAB PO HS, (Reported) Cholecalciferol (Vitamin D3) (Dialyvite Vitamin D3 Max), 1 TAB PO Q7D, (Reported) Cyclobenzaprine* (Cyclobenzaprine*), 1 TAB PO Q8H Insulin Glargine,Hum.rec.anlog* (Lantus*), 50 UNITS SQ HS, (Reported) Insulin Lispro (Humalog), SQ ACHS, (Reported) Lisinopril/Hydrochlorothiazide 10-12.5 Mg* (Lisinopril-Hctz 10-12.5 Mg*), 10- 12.5 MG PO HS, (Reported) Milk Thistle Seed Extract (Milk Thistle), Unknown Dose PO BID, (Reported) Sertraline HCl (Sertraline HCl), 150 MG PO HS, (Reported) Scheduled PRN Acetaminophen (Tylenol), 500 MG PO Q4HPRN PRN for pain or fever, (Reported) Albuterol Sulfate (Ventolin Hfa), 2 PUFFS INH Q4HPRN PRN for SOB or wheezing, (R eported) Ibuprofen* (Motrin*), Unknown Dose PO Q6H PRN PRN for pain, (Reported) Past Medical History Past Medical History: High Cholesterol, Hypertension, Diabetes, Chronic Back P ain, Anxiety, Depression, Panic Disorder Past Surgical History: no surgical history Alcohol Use: None Drug Use: none Lives In: Home Occupation: employed Review of Systems All Other Systems at this time: Reviewed and Negative Physical Exam Physical Exam Vital Signs: Temperature: 97.3, Source: Temporal, Heart Rate: 84, Respiratory Rate: 16, BP: 126/73, Pulse Oximetry: 96, Weight: 69.700 Oxygen Flow Rate: 0 Physical Exam General Appearance: Alert, WD/WN. NAD. HEENT: NCAT, PERRL, EOMI. Neck: Supple, trachea midline. Cardiovascular: RRR. No m/r/g. Lungs: CTAB. Breathing unlabored Spine: No tenderness over spinous processes of cervical through lumbar spine, t enderness over the lumbar paraspinal muscles mostly on the left side. Extremities: Normal inspection. No edema. Skin: Warm/dry, normal color Neurological: Alert and oriented x4, normal gait. Psychiatric: Affect congruent with mood. Progress Results/Orders Results/Orders Completed Orders - ARIAS PRESCOTT Ketorolac Trometh 15mg/Ml Vial (Toradol (08/21/25 12:10) Medications Received in ER Medications (Trade) Dose Ordered Sig/Sydni Route PRN Reason Start Time Stop Time Status Last Admin Dose Admin (Toradol injection) 30 mg ONCE ONCE IM 08/21/25 12:10 08/21/25 12:13 DC 08/21/25 12:27 30 MG Vital Signs 08/21/25 08/21/25 08/21/25 11:33 11:52 12:27 Temp 97.3 Pulse 84 Resp 16 16 16 B/P (MAP) 126/73 Pulse Ox 96 O2 Flow Rate 0 Laboratory Tests Test 08/21/25 09:50 08/21/25 11:57 Urine Specimen Description Cln catch midstream Urine Color Yellow Urine Clarity Clear Urine pH 6.0 Urine Specific [place] 1.025 Urine Protein Negative Urine Glucose (UA) Negative Urine Ketones Negative Urine Occult Blood Negative Urine Nitrite Negative Urine Bilirubin Negative Urine Urobilinogen 0.2 Urine Leukocyte Esterase Negative Urine Culture Indicated Not ind Volume Urine Centrifuged 10 ml Urine Comment White Blood Count 6.4 Red Blood Count 4.26 Hemoglobin 13.3 Hematocrit 38.8 Mean Corpuscular Volume 91.0 Mean Corpuscular Hemoglobin 31.3 H Mean Corpuscular Hemoglobin Concent 34.4 Red Cell Distribution Width 12.6 Platelet Count 259 Mean Platelet Volume 6.8 L Neutrophils (%) (Auto) 61.4 Lymphocytes (%) (Auto) 29.1 Monocytes (%) (Auto) 6.3 Eosinophils (%) (Auto) 2.7 Basophils (%) (Auto) 0.5 Neutrophils # (Auto) 4.0 Lymphocytes # (Auto) 1.9 Monocytes # (Auto) 0.4 Eosinophils # (Auto) 0.2 Basophils # (Auto) 0.0 CBC Comment Sodium Level 135 Potassium Level 3.9 Chloride Level 101 Carbon Dioxide Level 27.6 Anion Gap 6 L Blood Urea Nitrogen 17 Creatinine 0.66 Estimated GFR/1.73 m2 > 90 BUN/Creatinine Ratio 25.8 H Glucose Level 119 H Calcium Level 8.6 Total Bilirubin 0.3 Aspartate Amino Transf (AST/SGOT) 38 H Alanine Aminotransferase (ALT/SGPT) 42 Alkaline Phosphatase 75 Total Protein 7.0 Albumin 3.3 L Globulin 3.7 Albumin/Globulin Ratio 0.9 L Lipase 20 Chemistry Comments Medical Decision Making Additional information obtaine: N/A Findings n/a Differential Dx:Considerations: AAA, Bowel obstruction, Fracture, HNP, Musculoskeletal pain, Pyelonephritis, Urinary tract infection Differential Diagnosis No midline tenderness over spinous processes I am not concerned about a compression fracture. Patient has no symptoms of cauda equina or any symptoms of cord compression. Departure Time of Disposition: 12:14 Disposition: 01 HOME / SELF CARE / HOMELESS Impression: Primary Impression: Low back pain Qualified Codes: M54.50 - Low back pain, unspecified Condition: Stable Discharge Instructions: Acute Back Pain, Adult Additional Instructions: You can continue with your Tylenol and Flexeril hold the Motrin or any NSAIDs for the next 24 hours since we gave you a Toradol injection here. Follow up with your primary care provider for a referral to physical therapy if your pain is not improving and for further management. If worsening of your symptoms certainly if you experience any neurological symptoms such as clumsiness of your lower extremities, urinary retention, bowel or bladder incontinence return to [facility] ER immediately Referrals: NO PRIMARY CARE PROVIDER (PCP) Education Educated: Patient Educated regarding: diagnosis, treatment, need for follow up Signature Scribe Signature: x Attestation: ARIAS Viera Aug 21, 2025 12:15
[2025-08-21] MEDS: ketorolac trometh 15mg/ml vial 15 MG/ML ML IM ONE (12:27)
[2025-08-21 12:28] LABS: CREATININE 0.66 MG/DL (0.40-0.90); TOTAL CARBON DIOXIDE 27.6 MMOL/L (24-32); eCRCL 76 ML/MIN; eGFR > 90 ML/MIN
[2025-08-21 13:16] VITALS: BP 108/66; PULSE 77; RESP 17; O2SAT 96
== END 2025-08-21 13:18 | disposition home or self-care (01) ==
LOC: ER 11:24
DX: M54.50 Low back pain, unspecified (principal); F41.9 Anxiety disorder, unspecified; F32.A Depression, unspecified; E11.9 Type 2 diabetes mellitus without complications; E78.00 Pure hypercholesterolemia, unspecified; G89.29 Other chronic pain; I10 Essential (primary) hypertension; Z87.442 Personal history of urinary calculi; Z87.440 Personal history of urinary (tract) infections; Z79.899 Other long term (current) drug therapy; Z79.4 Long term (current) use of insulin
CPT/HCPCS: 36415; 80053; 81003; 83690; 85025; 96372; 99283; J1885